=== PATIENT | male | born 1965 | race Caucasian/White ===

== ENCOUNTER 2022-03-22 15:57 | Outpatient (CLI) | payer BC ==
[~2022-03-22] VITALS: Ht 179.1 cm; Wt 111.1 kg
[2022-03-22 16:14] LABS: TOTAL HEMOGLOBIN 14.6 G/dl (14.0-17.9)
[2022-03-22] MEDS ORDERED: albuterol 2.5 MG/3 ML nebule NEB ONE (16:50)
== END 2022-03-22 23:59 | disposition home or self-care (01) ==
LOC: RT 15:57
PROVIDERS: ATTEND Internal Medicine
DX: R94.2 Abnormal results of pulmonary function studies (principal); R06.02 Shortness of breath; F17.290 Nicotine dependence, other tobacco product, uncomplicated; J98.4 Other disorders of lung; Z79.899 Other long term (current) drug therapy
CPT/HCPCS: 85018; 94060; 94727; 94729; 94760